=== PATIENT | male | born 1960 | race Caucasian/White ===

== ENCOUNTER → 2024-11-19 06:54 | Outpatient (REF) | payer OTHER, SELFPAY | LOC: HWRAD 06:54 | PROVIDERS: ATTENDING PHYSICIAN Internal Medicine | DX: M25.532 Pain in left wrist (principal); S59.912A Unspecified injury of left forearm, initial encounter; S69.92XA Unspecified injury of left wrist, hand and finger(s), initial encounter | CPT/HCPCS: 73090; 73110 ==

== ENCOUNTER → 2025-07-06 07:26 | Outpatient (REF) | payer MEDICARE, BC, SELFPAY | LOC: MRI 07:26 | PROVIDERS: ATTENDING PHYSICIAN Specialist; FAMILY PHYSICIAN Internal Medicine | DX: M25.561 Pain in right knee (principal) | CPT/HCPCS: 73721 ==